=== PATIENT | male | born 1975 | race Caucasian/White ===

== ENCOUNTER 2017-12-04 09:23 | Day surgery (SDC) | payer BC ==
[2017-12-02 14:16] VITALS: BMI 32.8
[~2017-12-04 09:23] MED LIST: DEXAMETHASONE SOD PHOSPHATE 10 MG/ML 1 ML VIAL IV ONE; DEXAMETHASONE SOD PHOSPHATE 4 MG/ML 1 ML VIAL IV ONE; FAMOTIDINE 20 MG/2 ML VIAL IV ONE; HYDROmorphone 0.5 MG/0.5 ML SYRINGE IVP PRN; LACTATED RINGERS 1,000 ML IV SCH; MORPHINE SULFATE 4 MG/ML SYRINGE IVP PRN; ONDANSETRON 4 MG/2 ML VIAL IVP ONE; ceFAZolin 1,000 MG in DEXTROSE/WATER 1 50ML.BAG IV ONE
[2017-12-04] MEDS ORDERED: LIDOCAINE 1% 20 ML VIAL (10MG/ML) FOR IV START INTRADERMA ONE (11:06)
[2017-12-04] MEDS ORDERED: SCOPOLAMINE 1.5MG/72HR PATCH TRANSDERM ONE (11:07)
[2017-12-04] MEDS ORDERED: SUCCINYLCHOLINE CHLORIDE 100 MG/5 ML SYR IV ONE (12:07)
[2017-12-04] MEDS ORDERED: fentaNYL (PF) 50 MCG/ML 2 ML AMP ONE (12:07)
[2017-12-04] MEDS ORDERED: LIDOCAINE 1% INJ 10MG/ML (20 ML MDV) ONE (12:07)
[2017-12-04] MEDS ORDERED: PROPOFOL 10 MG/ML 20 ML VIAL IV ONE (12:07)
[2017-12-04] MEDS ORDERED: MIDAZOLAM 2 MG/2 ML VIAL ONE (12:07)
[2017-12-04] MEDS ORDERED: LIDOCAINE 1%-EPI 1:100,000 20 ML VIAL SQ ONE (12:34)
[2017-12-04] MEDS ORDERED: BACITRACIN 500 UNIT/GM OINT 28.4 GM TUBE TOPICAL ONE (12:34)
--- NOTE | 2017-12-04 13:16 | P.OP ---
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 Operative Findings: Left superior helical rim lesion which is roughened and raised, raised rounded skin lesion left upper nasal dorsum with rolled raised edges and ulcerative depressed center Description of Procedure: The patient was brought in the operative suite and placed in a supine position. The patient underwent induction of general anesthesia with oral endotracheal intubation without difficulty. The patient was prepped and draped in usual aseptic fashion. 1% lidocaine with 1-100,000 epinephrine was infused subcutaneously in field block fashion left upper nasal dorsum and left ear. This was left to work for 7 minutes vasoconstrictive effect. The left upper nasal lesion was excised grossly entirely down to the middle ear and hemostasis was gained with electrocautery. A local flap was developed and superiorly as a modified glabellar flap in order to decrease any tension towards the medial canthus. This was developed and incisions were made and lifted at the same depth as the defect and was rotated and advanced into position. Hemostasis was noted to be good. Subcutaneous layers were closed with inverted interrupted 6- 0 Vicryl and skin closed with simple interrupted 5-0 Prolene suture. Bacitracin ointment was placed. The left ear skin lesion was excised in elliptical fashion including a shave of underlying cartilage. Hemostasis gained with electrocautery. The wound was closed in the subcutaneous layer with inverted interrupted 6-0 Vicryl suture skin closed with simple interrupted 5-0 Prolene suture. Bacitracin ointment sterile dressing was placed. Patient was allowed to emerge from general anesthesia having tolerated procedure well extubated in the operating suite and transferred to the postop recovery area in satisfactory condition.
[2017-12-04 13:30] VITALS: TEMP 97
[2017-12-04 13:46] VITALS: RESP 16
[2017-12-04 14:36] VITALS: BP 139/92; PULSE 65
== END 2017-12-04 14:56 | disposition home or self-care (01) ==
LOC: OR 09:23
PROVIDERS: ATTEND Otolaryngology
DX: D23.39 Other benign neoplasm of skin of other parts of face (principal); L98.8 Other specified disorders of the skin and subcutaneous tissue; C44.311 Basal cell carcinoma of skin of nose; J45.909 Unspecified asthma, uncomplicated; Z79.51 Long term (current) use of inhaled steroids; Z79.899 Other long term (current) drug therapy; Z88.8 Allergy status to other drugs, medicaments and biological substances; Z91.09 Other allergy status, other than to drugs and biological substances
CPT/HCPCS: 88305